=== PATIENT | female | born 1960 | race Caucasian/White ===

== ENCOUNTER 2019-03-21 21:40 | Emergency (ER) | payer BC, OTHER ==
[~2019-03-21] VITALS: Ht 152.4 cm; Wt 66.6 kg
--- NOTE | 2019-03-21 21:58 | NUR ---
pt reports n/v/d that started yesterday. pt states that her body hurts all over and she had felt very lethargic for a couple days. no acute distress noted. pt attached to all monitors. call light within reach. awaiting orders.
--- NOTE | 2019-03-21 21:59 | NUR ---
pt to xray
[2019-03-21] MEDS ORDERED: KETOROLAC 30 MG/1 ML IVPush ONE (22:00)
[2019-03-21] MEDS ORDERED: MORPHINE SULFATE 4 MG/ML, 1ML IVPush PRN (22:00)
[2019-03-21] MEDS ORDERED: SODIUM CHLORIDE 0.9% 1,000ML IVBOLUS ONE (22:00)
[2019-03-21] MEDS ORDERED: KETOROLAC 30 MG/1 ML ONE (22:08)
[2019-03-21] MEDS ORDERED: MORPHINE SULFATE 4 MG/ML, 1ML ONE (22:08)
--- NOTE | 2019-03-21 22:11 | NUR ---
pt states she is unable to urinate at this time
--- NOTE | 2019-03-21 22:25 | NUR ---
iv started. ivf started. medicated for pain per emar
[2019-03-21 22:30] LABS: BASOPHILS # (AUTO) 0.01 x10^3/uL (0-0.1); BASOPHILS % (AUTO) 0 % (0-1); EOSINOPHILS # (AUTO) 0.05 x10^3/uL (0-0.4); EOSINOPHILS % (AUTO) 1 % (1-7); LYMPHOCYTES # (AUTO) 0.85 x10^3/uL (1-3.4); LYMPHOCYTES % (AUTO) 10 % (22-44); MD NO; MEAN CORPUSCULAR HEMOGLOBIN 32.8 pg (27.0-34.8); MEAN CORPUSCULAR VOLUME 96.4 fL (80-100); MEAN PLATELET VOLUME 9.3 fL (7.4-10.4); MONOCYTES # (AUTO) 0.17 x10^3/uL (0.2-0.8); MONOCYTES % (AUTO) 2 % (2-9); NEUTROPHILS # (AUTO) 7.63 x10^3/uL (1.8-6.8); NEUTROPHILS % (AUTO) 88 % (42-75); PLATELET COUNT 211 x10^3/uL (130-400); RED CELL DISTRIBUTION WIDTH 12.3 % (9.6-15.2)
[2019-03-21] MEDS ORDERED: FAMOTIDINE 20 MG/2 ML IVP ONE (22:30)
[2019-03-21] MEDS ORDERED: ONDANSETRON 2MG/ML, 2ML IVPush ONE (22:30)
[2019-03-21 22:41] LABS: ALANINE AMINOTRANSFERASE 91 U/L (12-78); ALBUMIN 3.9 g/dL (3.4-5.0); ANION GAP 7 mmol/L (5-15); CALCIUM 8.8 mg/dL (8.5-10.1); CHLORIDE 105 mmol/L (98-107); CREATININE 0.96 mg/dL (0.55-1.02)
[2019-03-21 22:45] LABS: ALKALINE PHOSPHATASE 108 U/L (45-117); BILIRUBIN,TOTAL 0.8 mg/dL (0.2-1.0); TOTAL PROTEIN 7.8 g/dL (6.4-8.2); TROPONIN I < 0.015 ng/mL (0.000-0.045)
--- NOTE | 2019-03-21 23:05 | NUR ---
RECEIVED BS REPORT FROM BOBBI Silva RN TO ASSUME CARE OF PT. PT. IVF COMPLETED AND PT. TO BR FOR UA AND POSSIBLE STOOL SAMPLE. PT. AMBULATES WITH STEADY GAIT. REPORTS PAIN IS BETTER.
--- NOTE | 2019-03-21 23:13 | NUR ---
PT. BACK FROM BR. NO STOOL BUT SENDING URINE SAMPLE TO LAB. ALL MONITORS REPLACED. TECH AT BS FOR EKG. PT. NSR ON MONITOR. CALL LIGHT IN REACH. ALL SAFETY MEASURES OBSERVED.
[2019-03-21] MEDS ORDERED: FAMOTIDINE 20 MG/2 ML ONE (23:16)
[2019-03-21 23:23] LABS: MICROSCOPIC AUTO
[2019-03-21 23:26] LABS: CULTURE INDICATED? YES
--- NOTE | 2019-03-21 23:51 | NUR ---
CHART UP FOR RECHECK BY ERP.
[2019-03-22 01:01] VITALS: BP 167/97
== END 2019-03-22 01:02 ==
LOC: ED 03-22 00:56
DX: A08.4 Viral intestinal infection, unspecified (principal); R19.7 Diarrhea, unspecified; I10 Essential (primary) hypertension
CPT/HCPCS: 36415; 71046; 80053; 81001; 83605; 84145; 84484; 85025; 87086; 93005; 96361; 96374; 96375; 99284; J1885; J3490; J7030